=== PATIENT | female | born 1995 | race Caucasian/White ===

== ENCOUNTER 2025-04-20 09:06 | Outpatient (CLI) | payer BC, SELFPAY ==
--- NOTE | 2025-04-20 09:15 | CRLHL7_ITS ---
For Patients: As a result of the Cures Act, medical imaging exams and procedure reports are released immediately into your electronic medical record. You may view this report before your referring provider. If you have questions, please contact your health care provider. INDICATION: Dating and viability. LMP 02/18/2025. COMPARISON: None. TECHNIQUE: Ultrasound OB pelvis transvaginal for better visualization of the endometrium and ovaries. Real time grayscale imaging of the pelvis was performed. FINDINGS: Sonographic imaging demonstrates a single living intrauterine gestation. The embryo has a regular cardiac rate measuring 154 beats per minute. The embryo`s crown-rump length measures 1.5 cm which corresponds to a gestational age of 8 weeks 0 days with sonographic due date 11/30/2025. There is a normal-appearing yolk sac. The placenta has not yet developed. No evidence of a perigestational hemorrhage. The right ovary measures 3.4 x 2.3 x 2.4 cm and the left ovary measures 3.1 x 2.0 x 1.7 cm. Corpus luteal cyst in the right ovary. No free fluid in the pelvic cul-de-sac. IMPRESSION: 1. Single living intrauterine gestation corresponding to an ultrasound gestational age of 8 weeks 0 days with sonographic due date 11/30/2025. 2. The clinical gestational age by LMP is 8 weeks 5 days. Dictated by Liz Aguila MD @ 04/23/2025 2:44:40 AM (Electronically Signed)
== END 2025-04-20 09:07 | disposition home or self-care (01) ==
PROVIDERS: PCP Family Medicine; Visit Provider Physician Assistant
DX: Z34.91 Encounter for supervision of normal pregnancy, unspecified, first trimester (principal); Z3A.08 8 weeks gestation of pregnancy
CPT/HCPCS: 76817; 82565; 82570; 83021; 84156; 84450; 84460; 84520; 86592; 86703; 86704; 86706; 86762; 86787; 86803; 86850; 86900; 86901; 87086; 87340; 87491; 87591; 87624

== ENCOUNTER 2025-04-20 10:55 | Outpatient (CLI) | payer BC, SELFPAY ==
[2025-04-20 20:28] LABS: Chlamydia DNA Amplified* DETECTED (No Detected); GC DNA Amplified* NOT DETECTED (No Detected)
[2025-04-24 14:17] LABS: HPV Source Cervix
[2025-04-25 18:36] LABS: Pap Test Digital Imaging Done
== END 2025-04-20 10:56 | disposition home or self-care (01) ==
PROVIDERS: PCP Family Medicine; Visit Provider Physician Assistant
DX: Z34.91 Encounter for supervision of normal pregnancy, unspecified, first trimester (principal); Z12.4 Encounter for screening for malignant neoplasm of cervix
CPT/HCPCS: 82565; 82570; 83020; 83021; 84156; 84450; 84460; 84520; 85660; 86592; 86703; 86704; 86706; 86762; 86787; 86803; 86850; 86900; 86901; 87086; 87340; 87491; 87591; 87624; 87625; 88141; 88142; 88175

== ENCOUNTER 2025-05-16 08:46 | Outpatient (CLI) | payer BC, SELFPAY | END 2025-05-16 08:47 | disposition home or self-care (01) | PROVIDERS: PCP Family Medicine; Visit Provider Obstetrics & Gynecology | DX: Z11.3 Encounter for screening for infections with a predominantly sexual mode of transmission (principal) | CPT/HCPCS: 87491; 87591 ==